=== PATIENT | male | born 1945 | race Caucasian/White ===

== ENCOUNTER 2022-08-27 12:10 | Emergency (ER) | payer BC ==
[~2022-08-27] VITALS: Ht 180.3 cm; Wt 82.6 kg
[2022-08-27 12:10] VITALS: BP_SYST 102
[2022-08-27 12:46] LABS: BASOPHILS % (AUTO) 0.5 % (0.0-2.0); EOSINOPHILS # (AUTO) 0.1 K/uL (0.0-0.4); EOSINOPHILS % (AUTO) 1.8 % (0.0-4.0); HEMATOCRIT 32.6 % (36-54); LYMPHOCYTES # (AUTO) 0.8 K/uL (1.0-5.5); LYMPHOCYTES % (AUTO) 10.1 % (20.5-51.5); MEAN CORPUSCULAR HEMOGLOBIN 32 pg (27-31); MEAN CORPUSCULAR HGB CONC 34 % (32-36); MEAN CORPUSCULAR VOLUME 94 fL (79.0-98.0); MONOCYTES # (AUTO) 0.7 K/uL (0.0-1.0); MONOCYTES % (AUTO) 8.2 % (1.7-9.3); NEUTROPHILS # (AUTO) 6.4 K/uL (1.8-7.7); NEUTROPHILS % (AUTO) 79.4 % (40.0-70.0); PLATELET COUNT (AUTO) 262 K/uL (130-430); RED BLOOD CELL COUNT(AUTO) 3.46 MIL/uL (4.2-6.2); RED CELL DISTRIBUTION WIDTH 14.7 % (9.0-15.0)
[2022-08-27] MEDS ORDERED: APIX5TAB4 PO (12:59)
[2022-08-27] MEDS ORDERED: LIP20 PO (12:59)
[2022-08-27] MEDS ORDERED: LEVE750T4 PO (12:59)
[2022-08-27] MEDS ORDERED: FINA5TAB3 PO (12:59)
[2022-08-27] MEDS ORDERED: DOCU-144 PO (12:59)
[2022-08-27] MEDS ORDERED: ALLO100T PO (12:59)
[2022-08-27] MEDS ORDERED: dulcolax supp PR (12:59)
[2022-08-27] MEDS ORDERED: AMIO200T6 PO (12:59)
[2022-08-27] MEDS ORDERED: AMLO5TAB4 PO (12:59)
[2022-08-27] MEDS ORDERED: METO25TA3 PO (12:59)
[2022-08-27] MEDS ORDERED: SILO8CAP5 PO (12:59)
[2022-08-27] MEDS ORDERED: CARB1TAB33 PO (12:59)
[2022-08-27] MEDS ORDERED: BENA10TA73 PO (12:59)
[2022-08-27] MEDS ORDERED: SER25 PO ×2 (12:59)
[2022-08-27] MEDS ORDERED: DONE10TA44 PO (12:59)
[2022-08-27] MEDS ORDERED: ESCI10TA PO (12:59)
[2022-08-27] MEDS ORDERED: ROPI2TAB29 PO (12:59)
[2022-08-27 13:10] LABS: ANION GAP 7 (5-15); CALCIUM 8.8 mg/dL (8.4-11.0); CHLORIDE 107 mmol/L (98-107); CREATININE 1.66 mg/dL (0.55-1.30); GLUCOSE 81 mg/dL (70-99); UREA NITROGEN, BLOOD 26 mg/dL (8-21)
[2022-08-27 13:18] LABS: ALANINE AMINOTRANSFERASE 10 U/L (12-78); ALBUMIN 2.9 g/dL (3.4-4.8); ASPARTATE AMINOTRANSFERASE 15 U/L (10-37); PHOSPHORUS 3.3 mg/dL (2.7-4.5); TOTAL BILIRUBIN 0.4 mg/dL (0.0-1.0)
[2022-08-27 14:13] LABS: BILIRUBIN,URINE NEGATIVE (NEGATIVE); BLOOD, URINE 2+ (NEGATIVE); CLARITY/URINE SL CLOUDY (CLEAR); COLOR,URINE YELLOW (YELLOW); GLUCOSE,URINE NEGATIVE (NEGATIVE); KETONES,URINE NEGATIVE (NEGATIVE); LEUKOCYTE ESTERASE ,URINE 3+ (NEGATIVE); NITRITE, URINE NEGATIVE (NEGATIVE); PROTEIN URINE 2+ (NEGATIVE); UROBILINOGEN,URINE 0.2 (0.2-1.0)
[2022-08-27 14:23] LABS: WBC,URINE >100 /HPF (0-3)
[2022-08-27 14:24] LABS: BACTERIA,URINE FEW /HPF (None Seen); MUCUS,URINE 1+ /LPF (None Seen)
[2022-08-27] MEDS ORDERED: CEPH-548 PO (15:27)
[2022-08-27 15:37] VITALS: BP_SYST 115
== END 2022-08-27 15:36 | disposition home or self-care (01) ==
LOC: SED 12:10
DX: N39.0 Urinary tract infection, site not specified (principal); R53.1 Weakness; R51.9 Headache, unspecified; Z79.899 Other long term (current) drug therapy; Z20.822 Contact with and (suspected) exposure to COVID-19
CPT/HCPCS: 36415; 70450-TC; 72125-TC; 76376; 80053; 81000; 83735; 84100; 84484; 85025; 87086; 87186-TC; 93005; 99285